=== PATIENT | female | born 1985 | race Caucasian/White ===

== ENCOUNTER 2020-12-30 11:38 | Inpatient (IN) | payer OTHER ==
[~2020-12-30] VITALS: Ht 170.2 cm; Wt 107.0 kg
[2020-12-30 13:04] LABS: HEMOGLOBIN 9.4 gm/dl (12.3-15.3); RED BLOOD COUNT 3.84 M/UL (4.00-5.10); WHITE BLOOD COUNT 8.5 K/UL (4.5-11.0)
[2020-12-30 13:24] LABS: BUN/CREATININE RATIO 7 (0-10)
[2020-12-30] MEDS ORDERED: NEXIUM20 M1 PO (18:37)
[2020-12-30] MEDS ORDERED: ACID REDUCER200 MG PO (18:38)
[2020-12-30] MEDS ORDERED: TYLENOL325 MG PO (18:39)
[2020-12-30] MEDS ORDERED: SINUS RELIEF14.7 ML (18:40)
[2020-12-31] MEDS ORDERED: HEMOCYTE324 MG PO (09:48)
[2020-12-31] MEDS ORDERED: COLACE100 MG PO (09:48)
[2020-12-31] MEDS ORDERED: PERCOCET 10-321 EACH PO (09:48)
[2020-12-31] MEDS ORDERED: IBUPROFEN800 MG PO (09:48)
[2021-01-01 06:43] LABS: HEMOGLOBIN 8.3 gm/dl (12.3-15.3)
[2021-01-03] MEDS ORDERED: LABETALOL HCL100 MG PO (14:31)
== END 2021-01-03 17:18 | disposition home or self-care (01) | DRG 787 ==
LOC: GENOP 11:38 → OB 12:47
PROVIDERS: Obstetrics & Gynecology; ADMIT Obstetrics & Gynecology
PROC: 4A1HX4Z Monitoring of Products of Conception, Cardiac Electrical Activity, External Approach (ICD-10-PCS; 2020-12-31)
PROC: 10D00Z1 Extraction of Products of Conception, Low, Open Approach (ICD-10-PCS; principal; 2020-12-31 08:43)
DX: O34.211 Maternal care for low transverse scar from previous cesarean delivery (principal); O98.42 Viral hepatitis complicating childbirth; O13.4 Gestational [pregnancy-induced] hypertension without significant proteinuria, complicating childbirth; N85.8 Other specified noninflammatory disorders of uterus; Z3A.36 36 weeks gestation of pregnancy; Z37.0 Single live birth; O24.429 Gestational diabetes mellitus in childbirth, unspecified control; B19.20 Unspecified viral hepatitis C without hepatic coma; F32.9 Major depressive disorder, single episode, unspecified; O99.334 Smoking (tobacco) complicating childbirth; F17.210 Nicotine dependence, cigarettes, uncomplicated; Z3A.00 Weeks of gestation of pregnancy not specified; Z20.822 Contact with and (suspected) exposure to COVID-19
CPT/HCPCS: 36415; 80053; 80307; 81001; 82570; 82962; 83615; 83735; 84156; 84550; 85014; 85018; 85025; 90707; 90715; C9113; J0690; J1200; J1885; J2250; J2274; J2405; J2550; J2590; J2795; J3010; J3475; J7030; J7120; Q0177; U0002

== ENCOUNTER 2021-01-28 04:54 | Observation (INO) | payer OTHER ==
[~2021-01-28] VITALS: Ht 170.2 cm; Wt 93.9 kg
[~2021-01-28 04:54] MED LIST: ACID REDUCER200 MG PO; COLACE100 MG PO; HEMOCYTE324 MG PO; IBUPROFEN800 MG PO; LABETALOL HCL100 MG PO; NEXIUM20 M1 PO; PERCOCET 10-321 EACH PO; SINUS RELIEF14.7 ML; TYLENOL325 MG PO
[2021-01-28 11:49] LABS: HEMOGLOBIN 8.3 gm/dl (12.3-15.3); RED BLOOD COUNT 3.59 M/UL (4.00-5.10); WHITE BLOOD COUNT 9.7 K/UL (4.5-11.0)
[2021-01-28 12:20] LABS: BUN/CREATININE RATIO 11 (0-10)
--- NOTE | 2021-01-29 06:10 | NUR ---
TOOK OVER CARE FROM [facility] @ APPROX 2300. PT REQUESTS PAIN MEDS. STATES PAIN AROUND RIGHT SIDE OF ABDOMEN AROUND INCISION . POTASSIUM WAS DRAWN AT APPROX 2300 AND RESULTS WERE UP TO A 3.3. PO 20 MEQ OF POTASSIUM GIVEN PER PROTOCOL. ANTIBX'S HAVE BEEN GIVEN Q6 HR ORDERED. IV SITE TO RIGHT FOREARM WNL. NORMAL SALINE CONTINUES TO INFUSE @ 125/HR PER PUMP. CURRENTLY @ 0616 , AWAITING LABS TO BE DRAWN.
[2021-01-29 06:41] LABS: HEMOGLOBIN 7.9 gm/dl (12.3-15.3); RED BLOOD COUNT 3.41 M/UL (4.00-5.10); WHITE BLOOD COUNT 9.1 K/UL (4.5-11.0)
[2021-01-29 07:04] LABS: BUN/CREATININE RATIO 12 (0-10)
[2021-01-30 06:41] LABS: HEMOGLOBIN 7.7 gm/dl (12.3-15.3); RED BLOOD COUNT 3.35 M/UL (4.00-5.10); WHITE BLOOD COUNT 7.9 K/UL (4.5-11.0)
[2021-01-30] MEDS ORDERED: AUGMENTIN 875-1 EACH PO (07:21)
[2021-01-30] MEDS ORDERED: FERROUS SULFAT325 M2 PO (14:24)
== END 2021-01-30 16:11 | disposition home or self-care (01) ==
LOC: OB 07:26
PROVIDERS: ADMIT Obstetrics & Gynecology
DX: O86.03 Infection of obstetric surgical wound, organ and space site (principal); O71.7 Obstetric hematoma of pelvis; Z20.822 Contact with and (suspected) exposure to COVID-19
CPT/HCPCS: 36415; 74022; 80053; 84132; 85025; 96360; 96361; 96367; 96374; 96376; G0378; G0379; J2543; J7030; J7120; Q9967; U0002